=== PATIENT | male | born 1990 | race Caucasian/White ===

== ENCOUNTER 2017-01-20 21:29 | Emergency (ER) | payer MEDICAID ==
[2017-01-20] MEDS ORDERED: NO HOME MEDICATION XX (21:43)
== END 2017-01-20 22:25 ==
LOC: EDMED 21:29
DX: S09.93XA Unspecified injury of face, initial encounter (principal); K08.89 Other specified disorders of teeth and supporting structures; W22.8XXA Striking against or struck by other objects, initial encounter